=== PATIENT | male | born 1985 ===

== ENCOUNTER 2017-12-23 09:46 | Emergency (ER) | payer OTHER ==
[~2017-12-23] VITALS: Ht 170.2 cm; Wt 102.1 kg
[2017-12-23] MEDS ORDERED: ZANTAC300 MG (10:00)
== END 2017-12-23 19:48 | disposition home or self-care (01) ==
LOC: ER 09:46
DX: K76.0 Fatty (change of) liver, not elsewhere classified (principal); R10.11 Right upper quadrant pain